=== PATIENT | male | born 1970 | race Two or more races ===

== ENCOUNTER 2018-08-14 11:38 | Emergency (ER) | payer MEDICARE, OTHER ==
[~2018-08-14] VITALS: Ht 177.8 cm; Wt 99.8 kg
[~2018-08-14 11:38] MED LIST: ACEBUTCAFT PO; ACET325 PO; ALBU90OI6 INH; ATEN50 PO; ATOR10 PO; AZAT50; BUPR150ER PO; BUTASPCAFT PO; Benadryl 50 mg50 MG PO; FENO48 PO; FISH1000 PO; FLUT110OIA INH; GABA300 PO; GABA600 PO; IBUP600 PO; LEVO750 PO; Lisinopril2.5 MG PO; METO10 PO; METPRE4DP PO; Maxalt10 MG PO; PANT40; PRED10 PO; RANI150 PO; SERT50 PO; Super B Comple1 EAC2 PO; Super B Comple150 MG PO; TOPI50 PO; Zofran Odt4 MG SL
[2018-08-14] MEDS ORDERED: Prednisone20 MG PO (14:47)
[2018-08-14] MEDS ORDERED: Pepcid20 MG PO (14:47)
[2018-08-14] MEDS ORDERED: Benadryl 50 mg50 MG PO (14:47)
== END 2018-08-14 15:22 | disposition home or self-care (01) ==
LOC: ER 11:38
DX: T63.441A Toxic effect of venom of bees, accidental (unintentional), initial encounter (principal); T78.2XXA Anaphylactic shock, unspecified, initial encounter; I10 Essential (primary) hypertension; Z79.899 Other long term (current) drug therapy; Z79.51 Long term (current) use of inhaled steroids
CPT/HCPCS: 96361; 96372; 96374; 99284-25; J0171; J1200; J2930; J7030

== ENCOUNTER 2019-05-31 07:33 | Observation (INO) | payer MEDICARE, OTHER ==
[~2019-05-31] VITALS: Ht 182.9 cm; Wt 115.5 kg
[~2019-05-31 07:33] MED LIST changes: +Pepcid20 MG PO; +Prednisone20 MG PO
[2019-05-31 08:33] LABS: BASOPHILS ABSOLUTE AUTO 0.03 K/mm3 (0.00-0.23); BASOPHILS PERCENT AUTO 1 % (0-2); EOSINOPHILS ABSOLUTE AUTO 0.25 K/mm3 (0.00-0.68); EOSINOPHILS PERCENT AUTO 5 % (0-6); Hematocrit 50.4 % (37.0-53.0); Hemoglobin 16.2 g/dL (13.5-17.5); IMMATURE GRAN ABSOLUTE AUTO 0.03 K/mm3 (0.00-0.10); IMMATURE GRAN PERCENT AUTO 1 % (0-1); LYMPHOCYTES ABSOLUTE AUTO 0.86 K/mm3 (0.84-5.20); LYMPHOCYTES PERCENT AUTO 16 % (21-46); MONOCYTES ABSOLUTE AUTO 0.81 K/mm3 (0.16-1.47); MONOCYTES PERCENT AUTO 15 % (4-13); Mean Corpuscular HGB 28.3 pg (26.0-34.0); Mean Corpuscular HGB Conc 32.1 g/dL (31.5-36.5); Mean Corpuscular Volume 88 fL (80-100); NEUTROPHILS ABSOLUTE AUTO 3.46 K/mm3 (1.96-9.15); NEUTROPHILS PERCENT AUTO 64 % (41-73); Platelet Count 208 K/mm3 (150-400); RDW Coefficient Variation 12.9 % (11.7-14.2); RDW Standard Deviation 41.3 fL (35.1-46.3); Red Blood Cell Count 5.73 M/mm3 (4.30-5.90); White Blood Cell Count 5.44 K/mm3 (4.00-11.30)
[2019-05-31 08:46] LABS: Prothrombin Time Results 10.6 Sec (9.7-11.5)
[2019-05-31 08:57] LABS: Albumin, Blood 3.8 g/dL (3.4-5.0); Albumin/Globulin Ratio 1.4 (0.8-1.8); Bilirubin, Total 0.8 mg/dL (0.1-1.0); Bun/Creatinine Ratio 14.1 (12.0-20.0); Calcium, Blood 8.9 mg/dL (8.5-10.1); Creatinine, Blood 1.56 mg/dL (0.60-1.20); Globulin, Blood 2.7 g/dL (2.2-4.0); Potassium, Blood 4.3 mmol/L (3.5-5.5); Total Protein, Blood 6.5 g/dL (6.4-8.2); Troponin I 0.059 ng/mL (0.000-0.040)
[2019-05-31] MEDS ORDERED: AMLO5 PO (11:17)
[2019-05-31] MEDS ORDERED: ATEN100 PO (11:18)
[2019-05-31] MEDS ORDERED: SUCR1 PO (11:18)
[2019-05-31] MEDS ORDERED: FENO48 PO (11:18)
[2019-05-31] MEDS ORDERED: OMEPRAZOLE20 MG PO (11:18)
[2019-05-31] MEDS ORDERED: ONDA4 PO (11:18)
[2019-05-31] MEDS ORDERED: ATOR10 PO (11:19)
[2019-05-31] MEDS ORDERED: GABA300T24 PO (11:19)
[2019-05-31] MEDS ORDERED: LISI20 PO (11:19)
--- NOTE | 2019-05-31 16:22 | NUR ---
Echocardiogram completed.
[2019-05-31 17:23] LABS: Magnesium, Blood 2.2 mg/dL (1.6-2.4); Troponin I 0.064 ng/mL (0.000-0.040)
[2019-05-31 17:24] LABS: Creatine Kinase MB 2.9 ng/mL (0.0-3.6); Creatine Kinase MB Index 2.5 (0.0-4.0); Phosphorus, Blood 3.3 mg/dL (2.5-4.9)
--- NOTE | 2019-05-31 18:17 | NUR ---
NEW ADMIT TODAY. PATIENT HAS HAD NO PAIN, SOB, OR NV. HE IS ALERT AND ORIENTED AND PLEASANT. HE IS INDEPENDENT IN THE ROOM AND CALLS APPROPRIATLY. 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 HE REMAINS NPO, ANTI HTN MEDS HELD FOR 24 HOURS STARTING AT 1700 TODAY. HE HAS FLUIDS RUNNING AND IS NPO PER ORDER. HE HAS NO SKIN BREAKDOWN AND IS CONTINENT.
[2019-05-31 21:08] LABS: Creatine Kinase MB 2.7 ng/mL (0.0-3.6); Creatine Kinase MB Index 2.5 (0.0-4.0); Troponin I 0.076 ng/mL (0.000-0.040)
[2019-06-01 08:52] LABS: BASOPHILS ABSOLUTE AUTO 0.02 K/mm3 (0.00-0.23); BASOPHILS PERCENT AUTO 0 % (0-2); EOSINOPHILS ABSOLUTE AUTO 0.22 K/mm3 (0.00-0.68); EOSINOPHILS PERCENT AUTO 4 % (0-6); Hemoglobin 16.3 g/dL (13.5-17.5); IMMATURE GRAN ABSOLUTE AUTO 0.03 K/mm3 (0.00-0.10); IMMATURE GRAN PERCENT AUTO 1 % (0-1); LYMPHOCYTES ABSOLUTE AUTO 0.78 K/mm3 (0.84-5.20); LYMPHOCYTES PERCENT AUTO 15 % (21-46); MONOCYTES ABSOLUTE AUTO 0.71 K/mm3 (0.16-1.47); MONOCYTES PERCENT AUTO 14 % (4-13); Mean Corpuscular Volume 88 fL (80-100); Mean Platelet Volume 11.2 fL (9.1-12.4); NEUTROPHILS ABSOLUTE AUTO 3.41 K/mm3 (1.96-9.15); NEUTROPHILS PERCENT AUTO 66 % (41-73); Platelet Count 229 K/mm3 (150-400); RDW Coefficient Variation 12.9 % (11.7-14.2); RDW Standard Deviation 41.3 fL (35.1-46.3); Red Blood Cell Count 5.82 M/mm3 (4.30-5.90); White Blood Cell Count 5.17 K/mm3 (4.00-11.30)
[2019-06-01 09:09] LABS: Bun/Creatinine Ratio 16.2 (12.0-20.0); Calcium, Blood 9.1 mg/dL (8.5-10.1); Creatinine, Blood 1.42 mg/dL (0.60-1.20); Potassium, Blood 4.3 mmol/L (3.5-5.5)
--- NOTE | 2019-06-01 13:55 | NUR ---
REPORT GIVEN TO ELIZABETH MARTINEZ WHO WILL ASSUME CARE AT TIME OF PT TRANSFER FROM ANGIOGRAM. [facility] NURSE IN ROOM AT THIS TIME. SHE NOTIFIED NURSE THAT PT WILL GO FOR PROCEDURE AT THIS TIME AND THEN WILL GO TO PCU 7 AFTER.
--- NOTE | 2019-06-01 15:30 | NUR ---
pt arrived from heart center to pcu 7 at 1500. care assumed of pt at 1515. pt awake, alert, eating sandwich. denies c/o chest pain, pain, sob. states left wrist a little tender. tr band in place with reported 11cc air. circ check to left hand wnl. pt has some htn, states he did not have his htn meds this am. will follow up. no stents were placed.
--- NOTE | 2019-06-01 16:50 | NUR ---
TR BAND CHECK COMPLETED WITH EACH VITAL CHECK. CIRC CHECK REMAINS WNL. PT DENIES NUMBNESS, TINGLING. PT DOES STATE THERE IS AN ACHE IN HIS HAND. 4CC AIR SLOWLY RELEASED. SITE REMAINS CLEAR W/O OOZING. WILL DEFLATE BALLOON PER PROTOCOL AT 1700. ISTRATE CALLED TO CLARIFY HTN MED ORDERS. WILL MEDICATE FOR SBP > 180, OKAY TO RESUME HTN PO MEDS.
--- NOTE | 2019-06-01 18:33 | NUR ---
tr band removed w/o any complications. clear op-site placed. pt resting w home cpap on. denies all complaints.
--- NOTE | 2019-06-01 19:35 | NUR ---
ASSUMED CARE BEDSIDE REPORT RECIEVED. PT IS RESTING QUIETLY UPON ENTERING ROOM. PT AWAKENS EASILY AND IS ALERT AND ORIENTED. PT DENIES PAIN OR DISCOMFORT. VITAL SIGNS STABLE, PT ON ROOM AIR. RIGHT RADIAL ACCESS SITE C/D/I WITH OPSITE IN PLACE. ARM BOARD IN PLACE TO RIGHT WRIST. PT TAKING PO FLUIDS WELL. PT REPOSITIONS SELF IN BED. WILL CONTINUE TO MONITOR.
[2019-06-02 04:33] LABS: Bun/Creatinine Ratio 17.1 (12.0-20.0); Calcium, Blood 9.1 mg/dL (8.5-10.1); Creatinine, Blood 1.4 mg/dL (0.60-1.20); Potassium, Blood 3.9 mmol/L (3.5-5.5)
[2019-06-02 04:35] LABS: Troponin I 0.104 ng/mL (0.000-0.040)
--- NOTE | 2019-06-02 05:48 | NUR ---
SHIFT SUMMARY PT SLEPT THROUGHOUT MOST OF THE NIGHT. WHEN AWAKE PT IS ALERT, ORIENTED, AND PLEASANT. PT HAS DENIED PAIN THROUGHOUT THE NIGHT. ARM BOARD TO RIGHT RADIAL SITE IN PLACE. SITE IS C/D/I. PT USED CPAP THROUGHOUT THE SHIFT. VITAL SIGNS HAVE REMAINED STABLE. WILL CONTINUE TO MONITOR AND REPORT OFF TO ONCOMING RN.
--- NOTE | 2019-06-02 08:07 | NUR ---
START OF SHIFT NOTE: RECEIVED REPORT FROM DAVID GAVIRIA RN, ASSUMED CARE, PATIENT IS AWAKE, ALERT AND ORIENTED, LUNG SOUNDS CLEAR, VSS, DENIES PAIN, REPORTS NO CHEST PAIN/PRESSURE, AFEBRILE, NO N/V, SR/SB, ARMBOARD ON RIGHT WRIST, RIGHT RADIAL INCISION SITE C/D/I, NO HEMATOMA NOTED, NO BLEEDING, SOFT AND NONTENDER ON PALPATION, PATIENT REPORTS HE "HAD A GOOD NIGHT AND WANTS TO GO HOME", CALL LIGHT IN REACH, WILL CONTINUE TO MONITOR.
--- NOTE | 2019-06-02 09:52 | NUR ---
ISTRATE IN TO SEE PATIENT, WILL DISCHARGE HOME AFTER CTA CHEST, ORDERED BY DR. EL, NO NEW ORDERS RECEIVED AT THIS TIME.
--- NOTE | 2019-06-02 10:22 | NUR ---
PIV STARTED IN [facility] FOR PENDING CTA CHEST ORDERED BY DR. EL.
--- NOTE | 2019-06-02 10:30 | NUR ---
PATIENT TO IMAGING FOR ORDERED CTA CHEST, VIA WHEELCHAIR.
--- NOTE | 2019-06-02 10:47 | NUR ---
PATIENT RETURNED TO ROOM FROM CTA CHEST.
--- NOTE | 2019-06-02 12:29 | NUR ---
CTA RESULTS REPORTED TO DR. SAUER, WILL WRITE FOR DISCHARGE HOME.
[2019-06-02] MEDS ORDERED: ACET325 PO (13:04)
[2019-06-02] MEDS ORDERED: Aspirin EC81 MG PO (13:06)
[2019-06-02] MEDS ORDERED: NITR.4SL SL (13:07)
--- NOTE | 2019-06-02 14:23 | NUR ---
PATIENT DISCHARGED TO HOME, DISCHARGE INSTRUCTIONS VERBAL AND WRITTEN PROVIDED AND EXPLAINED, PATIENT VERBALIZED UNDERSTANDING, ALL QUESTIONS ANSWERED, ALSO AT BEDISDE, PATIENT SIGNED DISCHARGE, NEW PRESCRIPTIONS FAXED TO [facility]ESS[facility], EXPLAINED TO PATIENT, VERVALIZED UNDERSTANDING, PIV'S REMOVED WITH TIPS AND TUBING INTACT, PATIENT LEFT HOSPITAL VIA WHEELCHAIR WITH ALL BELONGINGS.
== END 2019-06-02 14:31 | disposition home or self-care (01) ==
LOC: ER 07:33 → MEDS 07:34 → PCU 07:34 → MEDS 14:26 → PCU 06-01 14:27
PROVIDERS: Emergency Medicine; ADMIT Family Medicine
PROC: 4A023N7 Measurement of Cardiac Sampling and Pressure, Left Heart, Percutaneous Approach (ICD-10-PCS; principal; 2019-06-01)
PROC: B2111ZZ Fluoroscopy of Multiple Coronary Arteries using Low Osmolar Contrast (ICD-10-PCS; principal; 2019-06-01)
PROC: 4A033BC Measurement of Arterial Pressure, Coronary, Percutaneous Approach (ICD-10-PCS; principal; 2019-06-01)
DX: R07.9 Chest pain, unspecified (principal); R77.8 Other specified abnormalities of plasma proteins; R53.1 Weakness; D86.9 Sarcoidosis, unspecified; I12.9 Hypertensive chronic kidney disease with stage 1 through stage 4 chronic kidney disease, or unspecified chronic kidney disease; N18.3 Chronic kidney disease, stage 3 (moderate); R06.09 Other forms of dyspnea; E78.5 Hyperlipidemia, unspecified; K21.9 Gastro-esophageal reflux disease without esophagitis; E66.9 Obesity, unspecified; I08.1 Rheumatic disorders of both mitral and tricuspid valves; I27.20 Pulmonary hypertension, unspecified; K76.0 Fatty (change of) liver, not elsewhere classified; R16.1 Splenomegaly, not elsewhere classified; J84.9 Interstitial pulmonary disease, unspecified; H02.402 Unspecified ptosis of left eyelid; Z79.899 Other long term (current) drug therapy; Z79.52 Long term (current) use of systemic steroids; Z79.51 Long term (current) use of inhaled steroids; Z79.82 Long term (current) use of aspirin; Z68.31 Body mass index [BMI] 31.0-31.9, adult
CPT/HCPCS: 36415; 70450; 70544; 70551; 71046; 71275; 80048; 80053; 82550; 82553; 83735; 84100; 84484; 85025; 85610; 93005; 93010; 93306; 93458; 93571; 99152; 99153; 99285-25; C1769; C1887; C1894; G0378; J1644; J1650; J2250; J3010; J7030; Q9967

== ENCOUNTER → 2020-12-24 | Outpatient (CLI) | payer MEDICARE ==
[~2020-12-24] MED LIST changes: +ALBU90OI INH; +AMLO5 PO; +AMLODIPINE BESYL5 MG PO; +ATEN100 PO; +ATORVASTATIN CA20 MG PO; +AZAT50 PO; +Aspirin EC81 MG PO; +BUDE.25 INH; +CARV6.25 PO; +CARVEDILOL12.5 MG PO; +FURO40 PO; +FUROSEMIDE40 MG PO; +GABA100 PO; +GABA300T24 PO; +LISI20 PO; +NITR.4SL SL; +OMEP20ER PO; +OMEPRAZOLE20 MG PO; +ONDA4 PO; +OXAYDO5 M1 PO; +POTCHL20ER PO; +PROM25 PO; +Percocet 7.5-31 EACH PO; +Potassium Chlo20 ME1 PO; +SUCR1 PO; +SUCRALFATE PO; +SULTRIDS PO; +SYMBICORT 160-4.6 GM INH
[2020-12-24 18:21] LABS: U Amphetamine Screen Not Detected; U Barbituate Screen Not Detected; U Benzodiazapine Screen Not Detected; U Buprenorphine Screen Not Detected; U Cannabinoids Screen Not Detected; U Cocaine Screen Not Detected; U Methadone Screen Not Detected; U Methamphetamine Screen Not Detected; U Opiates Screen Not Detected; U Oxycodone Screen Not Detected; U Phencyclidine Screen Not Detected; U Propoxyphene Screen Not Detected
== END ==
LOC: LAB 09:05 → LAB SHORT 09:05
PROVIDERS: Nurse Practitioner Family
DX: Z51.81 Encounter for therapeutic drug level monitoring (principal); Z79.891 Long term (current) use of opiate analgesic

== ENCOUNTER 2021-04-30 05:49 | Observation (INO) | payer MEDICARE ==
[~2021-04-30] VITALS: Ht 177.8 cm; Wt 125.3 kg
[~2021-04-30 05:49] MED LIST changes: -AMLODIPINE BESYL5 MG PO; -ATORVASTATIN CA20 MG PO; -CARVEDILOL12.5 MG PO; -FUROSEMIDE40 MG PO; -OMEP20ER PO; -Potassium Chlo20 ME1 PO; -SUCRALFATE PO
[2021-04-30] MEDS ORDERED: FUROSEMIDE40 MG PO (06:10)
[2021-04-30 06:52] LABS: BASOPHILS ABSOLUTE AUTO 0.03 K/mm3 (0.00-0.23); BASOPHILS PERCENT AUTO 1 % (0-2); EOSINOPHILS ABSOLUTE AUTO 0.31 K/mm3 (0.00-0.68); EOSINOPHILS PERCENT AUTO 6 % (0-6); Hematocrit 49.4 % (37.0-53.0); Hemoglobin 15.8 g/dL (13.5-17.5); IMMATURE GRAN ABSOLUTE AUTO 0.02 K/mm3 (0.00-0.10); IMMATURE GRAN PERCENT AUTO 0 % (0-1); LYMPHOCYTES ABSOLUTE AUTO 1.02 K/mm3 (0.84-5.20); LYMPHOCYTES PERCENT AUTO 18 % (21-46); MONOCYTES ABSOLUTE AUTO 0.76 K/mm3 (0.16-1.47); MONOCYTES PERCENT AUTO 14 % (4-13); Mean Corpuscular HGB 28.2 pg (26.0-34.0); Mean Corpuscular Volume 88 fL (80-100); Mean Platelet Volume 10.8 fL (9.1-12.4); NEUTROPHILS ABSOLUTE AUTO 3.46 K/mm3 (1.96-9.15); NEUTROPHILS PERCENT AUTO 62 % (41-73); Platelet Count 233 K/mm3 (150-400); RDW Coefficient Variation 13.1 % (11.7-14.2); RDW Standard Deviation 42.4 fL (35.1-46.3)
[2021-04-30 07:14] LABS: Albumin/Globulin Ratio 1.2 (0.8-1.8); Bilirubin, Total 1.1 mg/dL (0.1-1.0); Bun/Creatinine Ratio 15.3 (12.0-20.0); Calcium, Blood 9.2 mg/dL (8.5-10.1); Creatinine, Blood 1.37 mg/dL (0.60-1.20); Globulin, Blood 3.2 g/dL (2.2-4.0); Magnesium, Blood 2.2 mg/dL (1.6-2.4); Potassium, Blood 4.3 mmol/L (3.5-5.5); Total Protein, Blood 7.2 g/dL (6.4-8.2); Troponin I 0.044 ng/mL (0.000-0.040)
[2021-04-30] MEDS ORDERED: Potassium Chlo20 ME1 PO (11:43)
[2021-04-30] MEDS ORDERED: CARVEDILOL12.5 MG PO (11:44)
[2021-04-30] MEDS ORDERED: GABA100 PO (11:44)
[2021-04-30] MEDS ORDERED: LISI20 PO (11:44)
[2021-04-30] MEDS ORDERED: SUCRALFATE PO (11:44)
[2021-04-30] MEDS ORDERED: AMLODIPINE BESYL5 MG PO (11:45)
[2021-04-30] MEDS ORDERED: OMEP20ER PO (11:45)
[2021-04-30] MEDS ORDERED: ATORVASTATIN CA20 MG PO (11:45)
[2021-04-30] MEDS ORDERED: FURO40 PO (11:45)
[2021-04-30] MEDS ORDERED: Aspirin EC81 MG PO (11:46)
--- NOTE | 2021-04-30 14:00 | NUR ---
PT ARRIVED TO PCU VIA GURNEY FROM ED. REPORT FROM SARAN JOHNSON, PT ABLE TO STAND AND TRANSFER TO BED INDEP, A/OX3, PLEASANT AND COOPERATIVE WITH CARE, FOLLOWS COMMANDS WELL, DENIES PAIN AT THIS TIME, LUNGS ARE CLEAR T/O, RESP EVEN AND UNLABORED, NO COUGH NOTED, HRR, TELE IN PLACE RUNNING SR WITH PVC'S, NO EDEMA NOTED, PPP+1, CAP REFILL<3SEC, VS STABLE, AFEBRILE, IV SITE IS CLEAR AND PATENT, S.L. BTX4, ABD ROUND SOFT NONTENDER, VOIDS WITHOUT DIFF, SKIN C/W/D, LESLIE DONATO, ORIENTED TO ROOM LAYOUT AND CALL SYSTEM, CALL LIGHT IN REACH.
--- NOTE | 2021-04-30 21:56 | NUR ---
PT IS ALERT AND ORIENTED. DENIES CHEST PAIN OR SOB. PT VITALS ARE STABLE AND SATS ARE ABOVE 92% ON ROOM AIR. PT DENIES SYNCOPE WHEN UP TO THE BATHROOM. CALL LIGHT IS WITHIN REACH. WILL CONTINUE TO MONITOR.
[2021-05-01 04:26] LABS: BASOPHILS ABSOLUTE AUTO 0.03 K/mm3 (0.00-0.23); BASOPHILS PERCENT AUTO 1 % (0-2); EOSINOPHILS ABSOLUTE AUTO 0.25 K/mm3 (0.00-0.68); EOSINOPHILS PERCENT AUTO 4 % (0-6); IMMATURE GRAN ABSOLUTE AUTO 0.03 K/mm3 (0.00-0.10); IMMATURE GRAN PERCENT AUTO 1 % (0-1); LYMPHOCYTES ABSOLUTE AUTO 1.08 K/mm3 (0.84-5.20); LYMPHOCYTES PERCENT AUTO 18 % (21-46); MONOCYTES ABSOLUTE AUTO 0.87 K/mm3 (0.16-1.47); MONOCYTES PERCENT AUTO 15 % (4-13); Mean Corpuscular HGB 28.6 pg (26.0-34.0); Mean Corpuscular HGB Conc 32.6 g/dL (31.5-36.5); Mean Corpuscular Volume 88 fL (80-100); Mean Platelet Volume 11.3 fL (9.1-12.4); NEUTROPHILS ABSOLUTE AUTO 3.73 K/mm3 (1.96-9.15); NEUTROPHILS PERCENT AUTO 62 % (41-73); Platelet Count 219 K/mm3 (150-400); RDW Coefficient Variation 13.2 % (11.7-14.2); RDW Standard Deviation 42.2 fL (35.1-46.3); Red Blood Cell Count 5.25 M/mm3 (4.30-5.90); White Blood Cell Count 5.99 K/mm3 (4.00-11.30)
[2021-05-01 04:56] LABS: Alanine Aminotransfer (ALT/SGP 44 U/L (12-78); Albumin, Blood 3.5 g/dL (3.4-5.0); Albumin/Globulin Ratio 1.2 (0.8-1.8); Alk Phos 104 U/L (50-136); Anion Gap 5 mmol/L (6-16); Aspartate Aminotrans (AST/SGOT 27 U/L (12-37); Bilirubin, Total 1.2 mg/dL (0.1-1.0); Blood Urea Nitrogen 20 mg/dL (8-24); Bun/Creatinine Ratio 15.6 (12.0-20.0); CO2, Blood 26 mmol/L (21-32); Calcium, Blood 9.1 mg/dL (8.5-10.1); Chloride, Blood 108 mmol/L (98-108); Creatinine, Blood 1.28 mg/dL (0.60-1.20); Globulin, Blood 2.9 g/dL (2.2-4.0); Glomerular Filtration Rate >60 (60-); Glucose, Blood 95 mg/dL (70-99); Potassium, Blood 3.9 mmol/L (3.5-5.5); Sodium, Blood 139 mmol/L (136-145); Total Protein, Blood 6.4 g/dL (6.4-8.2); Troponin I 0.046 ng/mL (0.000-0.040)
--- NOTE | 2021-05-01 06:03 | NUR ---
SHIFT SUMMARY PT IS ALERT AND ORIENTED. DENIES CP AND SOB. VITALS ARE STABLE AND IS ON ROOM AIR WITH SATS ABOVE 92%. PT STS THAT HE IS FEELING VERY ANXIOUS AT TIMES AND VERBALIZES FEAR ABOUT THE EPISODE THAT BROUGHT HIM IN . PT IS ABLE TO AMBULATE TO THE BATHROOM BY SELF. USES CALL LIGHT APPROPIETLY.
[2021-05-01] MEDS ORDERED: LISI20 PO (11:34)
--- NOTE | 2021-05-01 13:41 | NUR ---
DISCHARGE ORDERS PLACED; PT'S IV REMOVED AT 1210; DISCHARGE TEACHING GIVEN AT 1215; PT LEFT UNIT AT 1235; PT DENIES ADDITIONAL CONCERNS AT THIS TIME; PT REFUSED WHEELCHAIR AND SAID THAT HE WANTED TO WALK TO ER ENTRANCE TO PRIVATE VEHICLE DRIVEN BY HIS ; TELEMETRY DISCONTINUED; PERSONAL EFFECTS GATHERED BY RN AND PT
== END 2021-05-01 12:35 | disposition home or self-care (01) ==
LOC: ER 05:49 → PCU 05:50
PROVIDERS: Emergency Medicine; ADMIT Internal Medicine
DX: I49.01 Ventricular fibrillation (principal); I47.2 Ventricular tachycardia; I13.0 Hypertensive heart and chronic kidney disease with heart failure and stage 1 through stage 4 chronic kidney disease, or unspecified chronic kidney disease; N18.30 Chronic kidney disease, stage 3 unspecified; I50.9 Heart failure, unspecified; D86.0 Sarcoidosis of lung; D86.89 Sarcoidosis of other sites; K21.9 Gastro-esophageal reflux disease without esophagitis; E78.5 Hyperlipidemia, unspecified; G43.909 Migraine, unspecified, not intractable, without status migrainosus; G47.33 Obstructive sleep apnea (adult) (pediatric); E66.9 Obesity, unspecified; Z68.38 Body mass index [BMI] 38.0-38.9, adult; Z95.810 Presence of automatic (implantable) cardiac defibrillator; Z79.82 Long term (current) use of aspirin
CPT/HCPCS: 36415; 71045; 80053; 83735; 84484; 85025; 93005; 93010; 94762; 96372; 99285-25; A9270; G0378; J1650